=== PATIENT | male | born 1965 | race Two or more races ===

== ENCOUNTER → 2024-10-26 | Outpatient (CLI) | payer BC, SELFPAY ==
--- NOTE | 2024-10-26 07:30 | XR_ITS ---
Examination: CT chest, without intravenous contrast. Sagittal and coronal 2-D reconstructions. Exam date and time: October 26, 2024 0735 hours INDICATIONS: CT chest 08/06/2024 16 mm 10 mm pulmonary nodules right upper lobe CTDI:vol (mGy) 12.9 DLP: (mGycm) 513 Technique: Multiple 3.0 mm axial sections of the chest to been obtained. Bone and lung density settings are obtained. Sagittal and coronal 2-D reconstructions have been obtained. Low dose protocols were performed. One or more of the following dose reduction techniques were used; automated exposure control, adjustment of the mA and/or KV according to patient size, use of iterative reconstruction technique. Findings: No thoracic aortic aneurysm dilatation Pulmonary artery segments are not enlarged No paratracheal tracheobronchial or bronchopulmonary adenopathy Pulmonary nodule right upper lobe measures 18 mm compared to 16 mm on 08/06/2024 which may relate to positioning No pneumonia or pulmonary edema No pleural disease No focal liver lesions Absent gallbladder Spleen not enlarged No pancreatic mass IMPRESSION: Pulmonary nodule right upper lobe measures 18 mm compared to 16 mm on August 06, 2024 Recommend continued 6 month follow-up CT chest without contrast
== END | disposition home or self-care (01) ==
LOC: CCTX 07:01
PROVIDERS: Referring Provider Radiology Therapeutic Radiology; Visit Provider Radiology Therapeutic Radiology
DX: R91.1 Solitary pulmonary nodule (principal)
CPT/HCPCS: 71250